=== PATIENT | male | born 1985 | race Caucasian/White ===

== ENCOUNTER 2020-08-01 14:58 | Emergency (ER) | payer SELFPAY ==
[~2020-08-01] VITALS: Ht 180.3 cm; Wt 78.0 kg
[2020-08-01] MEDS: IV NORMAL SALINE 1,000ML 1,000 ML IV ONE (15:40)
--- NOTE | 2020-08-01 16:35 | RAD ---
XR CHEST 1V Clinical Indication: hyperglycemia / Comparison: None. Findings: The cardiomediastinal silhouette is normal. Lungs are clear. There is no pneumothorax. No pleural eff usion is appreciated. No acute bone abnormality. IMPRESSION: No acute cardiopulmonary process. Electronically signed by: Jose Slater MD (08/01/2020 4:32 PM) [facility]
[2020-08-01] MEDS ORDERED: PIP/TAZO PER PHARMACY MC PRN (17:00)
[2020-08-01] MEDS: IV RINGERS SOLUTION,LACTATED 1,000 ML IV ONE (17:00)
--- NOTE | 2020-08-01 17:06 | EKG ---
[address] [address] Test Date: 2020-08-01 Test Time: 16:20:56 Pat Name: ENEDELIA FRANCISCO Department: Room: Gender: M Medical Assisting Instructor: CARMELO : 1985 Requested By: DARELL FELIX Order Number: [id number] Reading MD: Measurements Intervals [place] Rate: 102 P: 77 [place]: 136 QRS: 45 QRSD: 90 T: 59 QT: 338 QTc: 445 Interpretive Statements SINUS TACHYCARDIA NO SPECIFIC ECG ABNORMALITIES RI6.02 No previous ECG available for comparison
[2020-08-01 17:08] LABS: BARBITURATES NEG (NEG); BENZODIAZEPINES NEG (NEG); CANNABINOIDS NEG (NEG); COCAINE NEG (NEG); METHADONE NEG (NEG); OPIATES NEG (NEG); PHENCYCLIDINE NEG (NEG)
[2020-08-01 17:09] LABS: ALBUMIN 2.4 g/dL (3.4-5.0); ALBUMIN/GLOBULIN RATIO 0.3 (1.0-1.7); CALCIUM 10.4 mg/dL (8.5-10.1); CREATININE 1.5 mg/dL (0.7-1.3); POTASSIUM 5.5 mmol/L (3.5-5.1); TOTAL PROTEIN 9.4 g/dL (6.4-8.2)
[2020-08-01 17:10] LABS: AMPHETAMINE/METHAMPHETAMINE NEG (NEG)
[2020-08-01 17:13] LABS: BASO % 0 % (0-3); EOS % 0 % (0-3); HEMATOCRIT 41.2 % (39.0-53.0); HEMOGLOBIN 12.3 g/dL (13.0-17.5); LYMPH % 4 % (24-48); MEAN CORPUSCULAR HEMOGLOBIN 26 pg (25-35); MEAN CORPUSCULAR HGB CONC 30 g/dL (31-37); MEAN CORPUSCULAR VOLUME 87 fL (79-100); MONO # 1.9 x10^3/uL (0.0-1.1); MONO % 4 % (0-9); NEUT # 50.6 x10^3uL (1.8-7.7); NEUT % 93 % (31-73); PLATELET COUNT 580 x10^3/uL (140-400); RED BLOOD COUNT 4.75 x10^6/uL (4.30-5.70); RED CELL DISTRIBUTION WIDTH 16.6 % (11.5-14.5)
[2020-08-01 17:16] LABS: BACTERIA,URINE 0 /HPF (0-FEW); BILIRUBIN,URINE NEG (NEG); CLARITY,URINE CLEAR; COLOR,URINE COLORLESS; GLUCOSE,URINE 500 mg/dL (NEG); NITRITE,URINE NEG (NEG); RBC,URINE 0 /HPF (0-2); UROBILINOGEN,URINE 0.2 mg/dL (0.2 mg/dL); WBC,URINE 0 /HPF (0-4)
[2020-08-01] MEDS ORDERED: IV NORMAL SALINE 50ML 50 ML ONE (17:16)
[2020-08-01] MEDS ORDERED: VANCOMYCIN 1 GM VIAL. ONE (17:16)
[2020-08-01] MEDS ORDERED: PIPERACILLIN/TAZOBACTAM 3.375 GM VIAL IV ONE (17:16)
[2020-08-01] MEDS ORDERED: IV NORMAL SALINE 500ML 500 ML ONE (17:16)
[2020-08-01 17:27] LABS: WHITE BLOOD COUNT 54.6 x10^3/uL (4.0-11.0)
[2020-08-01] MEDS ORDERED: POTASSIUM CHLORIDE 10MEQ 100 ML IV PRN ×5 (17:30)
[2020-08-01] MEDS ORDERED: MAGNESIUM SULFATE 2GM 50 ML IV PRN (17:30)
[2020-08-01] MEDS ORDERED: IV DEXTROSE 5 %-0.45 % NACL 1,000 ML IV SCH (17:30)
[2020-08-01] MEDS: VANCOMYCIN 2 GM in IV NORMAL SALINE 500ML 500 ML IV ONE (17:44)
[2020-08-01] MEDS: DIPH,PERTUSS(ACELL),TET VAC/PF 0.5 ML SYRINGE. VAX IM ONE (17:45)
[2020-08-01] MEDS: PIPERACILLIN/TAZOBACTAM 3.375 GM in IV NORMAL SALINE 50ML 50 ML IV ONE (17:46)
--- NOTE | 2020-08-01 18:20 | RAD ---
XR ELBOW COMPLETE_LEFT 3+VIEWS, XR HAND_LEFT 3 VIEWS, XR FOREARM_LEFT 2 VIEWS History: Reason: rash, r/o fb / Spl. Instructions: / History: Pain Technique: 3 views left elbow, 2 views left forearm and 3 views left hand Comparison: None. Findings: Normal alignment of the elbow. No elbow joint effusion. No fracture. Soft tissue swelling noted. Normal alignment of the forearm. No fracture. Forearm soft tissue swelling. Degraded evaluation of the distal phalanges due to positioning. No definite fracture. Normal-appearin g alignment. No radiopaque foreign body. Impression: 1. No radiopaque foreign body. Left upper extremity soft tissue swelling. Electronically signed by: Suhail Vasquez DO (08/01/2020 6:18 PM) [facility]
[2020-08-01] MEDS ORDERED: IV NORMAL SALINE 100ML 100 ML ONE (18:21)
[2020-08-01] MEDS: INSULIN REGULAR VIAL 100 UNIT in IV NORMAL SALINE 100ML 100 ML IV PRN (18:34)
[2020-08-01 18:41] VITALS: BP 155/82
--- NOTE | 2020-08-01 19:55 | PHYS DOC ---
Past History Past Medical History: Diabetes Past Surgical History: No Surgical History Alcohol Use: None General Adult EDM: Chief Complaint: MULTIPLE COMPLAINTS HPI: HPI: 35-year-old male past medical history of insulin-dependent diabetes and IV heroin abuse, presents to the ED with left arm pain and rash, stating his glucose is in the 400s and has been out of his insulin for the past 2 days. Reports associated fever chills and malaise. Review of Systems: Review of Systems: Constitutional: Denies fever or chills Eyes: Denies change in visual acuity HENT: Denies nasal congestion or sore throat Respiratory: Denies cough or shortness of breath Cardiovascular: Denies chest pain or edema GI: Denies abdominal pain, nausea, vomiting, bloody stools or diarrhea : Denies dysuria Musculoskeletal: Denies back pain or joint pain Integument: Denies rash Neurologic: Denies headache, focal weakness or sensory changes Endocrine: Denies polyuria or polydipsia Lymphatic: Denies swollen glands Psychiatric: Denies depression or anxiety Current Medications: Current Meds: Current Medications Medications (Trade) Dose Ordered Sig/Yessy Start Time Stop Time Status Last Admin Dose Admin Dextrose/Sodium Chloride 1,000 ml @ 0 mls/hr Q0M 08/01/20 17:30 Diphtheria/ Pertussis/Tetanus Vacc (ADACEL TDap SYRINGE) 0.5 ml ONCE ONCE 08/01/20 17:00 08/01/20 17:01 DC 08/01/20 17:45 0.5 ML Insulin Human Regular 100 unit/ Sodium Chloride 101 ml @ 0 mls/hr CONT PRN PRN 08/01/20 17:30 08/01/20 18:34 8 MLS/HR Lactated Ringer's 1,000 ml @ 1,000 mls/hr 1X ONCE 08/01/20 17:00 08/01/20 17:59 DC 08/01/20 17:00 1,000 MLS/HR Magnesium Sulfate 50 ml @ 25 mls/hr PRN Q2HR PRN 08/01/20 17:30 Piperacillin Sod/ Tazobactam Sod (Zosyn Per Pharmacy) 1 each PRN DAILY PRN 08/01/20 17:00 Piperacillin Sod/ Tazobactam Sod (Zosyn) 3.375 gm STK-MED ONCE 08/01/20 17:16 08/01/20 17:17 DC Piperacillin Sod/ Tazobactam Sod 3.375 gm/Sodium Chloride 50 ml @ 100 mls/hr 1X ONCE 08/01/20 17:00 08/01/20 17:29 DC 08/01/20 17:46 100 MLS/HR Potassium Chloride 100 ml @ 100 mls/hr PRN Q1HR PRN 08/01/20 17:30 Sodium Chloride 100 ml @ As Directed STK-MED ONCE 08/01/20 18:21 08/01/20 18:22 DC Vancomycin HCl (Vancomycin) 1 gm STK-MED ONCE 08/01/20 17:16 08/01/20 17:17 DC Vancomycin HCl 2 gm/Sodium Chloride 500 ml @ 250 mls/hr 1X ONCE 08/01/20 17:00 08/01/20 18:59 DC 08/01/20 17:44 250 MLS/HR Allergies: Allergies: Allergies Coded Allergies Type Severity Reaction Last Updated Verified No Known Drug Allergies 08/01/20 No Physical Exam: PE: CONSTITUTIONAL: toxic appearing, in distress, alert and oriented, hemodynamically stable on arrival, no hypotension, unkept/disheveled appearance/dirty clothes, gf present in ed HEAD: normocephalic, atraumatic, NECK: No midline tenderness, no nuchal rigidity or meningismus, no JVD or tracheal deviation Eyes: EOMI, conjunctiva normal, no discharge. Cardiovascular: S1/2 present, tachycardia on arrival Lungs & Thorax: Speaking in full sentences, bilateral equal chest rise, hyperventilating with close pulse respirations Abdomen: soft, no tenderness, Skin: Warm, dry, Back: No midline tenderness, no CVA tenderness. [] Extremities: no cyanosis, no lower extremity edema, equal radial pulses bl, erythema over dorsum left hand - circumferential erythema over forearm, erythema over lateral arm - does not extend to axilla, entire arm swollen, no palpable crepitus, purulent drainage easily expressed from dorsum of patient's left hand around a black eschar/scab < 1cm, also with suspected superficial fungal infection over the dorsal forearm with yellow scaly plaques-no known h/o psoriasis, arm extended -minimal mvmt 2/2 pain (initially refused imaging 2/2 pain), Neurologic: Alert and oriented X 3/gcs15, normal motor function, normal sensory function, no focal deficits noted. [] Psychologic: Affect normal, judgement normal, mood normal. [] Current Patient Data: Labs: Laboratory Tests Test 08/01/20 15:13 08/01/20 15:32 08/01/20 16:16 08/01/20 16:50 Glucose (Fingerstick) 427 mg/dL (70-99) H White Blood Count 54.6 x10^3/uL (4.0-11.0) *H Red Blood Count 4.75 x10^6/uL (4.30-5.70) Hemoglobin 12.3 g/dL (13.0-17.5) L Hematocrit 41.2 % (39.0-53.0) Mean Corpuscular Volume 87 fL (79-100) Mean Corpuscular Hemoglobin 26 pg (25-35) Mean Corpuscular Hemoglobin Concent 30 g/dL (31-37) L Red Cell Distribution Width 16.6 % (11.5-14.5) H Platelet Count 580 x10^3/uL (140-400) H Neutrophils (%) (Auto) 93 % (31-73) H Lymphocytes (%) (Auto) 4 % (24-48) L Monocytes (%) (Auto) 4 % (0-9) Eosinophils (%) (Auto) 0 % (0-3) Basophils (%) (Auto) 0 % (0-3) Neutrophils # (Auto) 50.6 x10^3uL (1.8-7.7) H Lymphocytes # (Auto) 2.0 x10^3/uL (1.0-4.8) Monocytes # (Auto) 1.9 x10^3/uL (0.0-1.1) H Eosinophils # (Auto) 0.0 x10^3/uL (0.0-0.7) Basophils # (Auto) 0.0 x10^3/uL (0.0-0.2) Platelet Estimate Pending Sodium Level 129 mmol/L (136-145) L Potassium Level 5.5 mmol/L (3.5-5.1) H Chloride Level 89 mmol/L (98-107) L Carbon Dioxide Level 7 mmol/L (21-32) *L Anion Gap 33 (6-14) H Blood Urea Nitrogen 33 mg/dL (8-26) H Creatinine 1.5 mg/dL (0.7-1.3) H Estimated GFR (Cockcroft-Gault) 53.0 BUN/Creatinine Ratio 22 (6-20) H Glucose Level 506 mg/dL (70-99) *H Lactic Acid Level 3.6 mmol/L (0.4-2.0) H Calcium Level 10.4 mg/dL (8.5-10.1) H Magnesium Level 3.0 mg/dL (1.8-2.4) H Total Bilirubin 1.0 mg/dL (0.2-1.0) Aspartate Amino Transferase (AST) 23 U/L (15-37) Alanine Aminotransferase (ALT) 44 U/L (16-63) Alkaline Phosphatase 298 U/L (46-116) H Troponin I Quantitative < 0.017 ng/mL (0-0.055) Total Protein 9.4 g/dL (6.4-8.2) H Albumin 2.4 g/dL (3.4-5.0) L Albumin/Globulin Ratio 0.3 (1.0-1.7) L Acetone Level Sm pos (NEG) Urine Collection Type Unknown Urine Color Colorless Urine Clarity Clear Urine pH 5.0 Urine Specific Abercrombie >=1.030 Urine Protein 30 mg/dl (NEG-TRACE) Urine Glucose (UA) 500 mg/dL (NEG) Urine Ketones (Stick) >=160 mg/dL (NEG) Urine Blood Trace (NEG) Urine Nitrite Neg (NEG) Urine Bilirubin Neg (NEG) Urine Urobilinogen Dipstick 0.2 mg/dL (0.2 mg/dL) Urine Leukocyte Esterase Neg (NEG) Urine RBC 0 /HPF (0-2) Urine WBC 0 /HPF (0-4) Urine Squamous Epithelial Cells None /LPF Urine Bacteria 0 /HPF (0-FEW) Urine Opiates Screen Neg (NEG) Urine Methadone Screen Neg (NEG) Urine Barbiturates Neg (NEG) Urine Phencyclidine Screen Neg (NEG) Urine Amphetamine/Methamphetamine Neg (NEG) Urine Benzodiazepines Screen Neg (NEG) Urine Cocaine Screen Neg (NEG) Urine Cannabinoids Screen Neg (NEG) Urine Ethyl Alcohol Neg (NEG) SARS-CoV-2 Antigen (Rapid) Negative (NEGATIVE) Test 08/01/20 18:31 Glucose (Fingerstick) 478 mg/dL (70-99) H Vital Signs: Vital Signs Date Time Temp Pulse Resp B/P (MAP) Pulse Ox O2 Delivery O2 Flow Rate FiO2 08/01/20 15:59 105 40 145/89 (107) 99 Room Air 08/01/20 15:00 98.8 EKG: EKG: Sinus tachycardia 102 bpm, no axis deviation, QTC 445, hyperacute T waves diff usely with LVH, no dagger Q waves, questionable [place] depression for pericarditis, troponin pending for myocarditis, denies any active chest pain, no ST elevations or ST depressions Radiology/Procedures: Radiology/Procedures: IMAGING REPORT Signed PATIENT: ENEDELIA FRANCISCO A ACCOUNT: [id number] : 1985 LOCATION: ER AGE: 35 SEX: M EXAM STATUS: REG ER ORD. PHYSICIAN: JUDITH FELIX DO REASON: hyperglycemia PROCEDURE: CHEST AP ONLY XR CHEST 1V Clinical Indication: hyperglycemia / Comparison: None. Findings: The cardiomediastinal silhouette is normal. Lungs are clear. There is no pneumothorax. No pleural effusion is appreciated. No acute bone abnormality. IMPRESSION: No acute cardiopulmonary process. Electronically signed by: Jose Slater MD (08/01/2020 4:32 PM) [facility] DICTATED AND SIGNED BY: JOSE SLATER MD DATE: 08/01/20 1631 CC: PCP,NO; JUDITH FELIX DO ~MTH0 0 IMAGING REPORT Signed PATIENT: ENEDELIA FRANCISCO A ACCOUNT: [id number] : 1985 LOCATION: ER AGE: 35 SEX: M EXAM STATUS: REG ER ORD. PHYSICIAN: JUDITH FELIX DO REASON: rash, r/o fb PROCEDURE: ELBOW LEFT 3V XR ELBOW COMPLETE_LEFT 3+VIEWS, XR HAND_LEFT 3 VIEWS, XR FOREARM_LEFT 2 VIEWS History: Reason: rash, r/o fb / Spl. Instructions: / History: Pain Technique: 3 views left elbow, 2 views left forearm and 3 views left hand Comparison: None. Findings: Normal alignment of the elbow. No elbow joint effusion. No fracture. Soft tissue swelling noted. Normal alignment of the forearm. No fracture. Forearm soft tissue swelling. Degraded evaluation of the distal phalanges due to positioning. No definite fracture. Normal-appearing alignment. No radiopaque foreign body. Impression: 1. No radiopaque foreign body. Left upper extremity soft tissue swelling. Electronically signed by: Suhail Vasquez DO (08/01/2020 6:18 PM) [facility] DICTATED AND SIGNED BY: SUHAIL VASQUEZ DO DATE: 08/01/201814 CC: PCP,NO; JUDITH FELIX DO ~MTH0 0 Heart Score: Risk Factors: Risk Factors: DM, Current or recent (<one month) smoker, HTN, HLP, family history of CAD, obesity. Risk Scores: Score 0 - 3: 2.5% MACE over next 6 weeks - Discharge Home Score 4 - 6: 20.3% MACE over next 6 weeks - Admit for Clinical Observation Score 7 - 10: 72.7% MACE over next 6 weeks - Early Invasive Strategies Course & Med Decision Making: Course & Med Decision Making Pertinent Labs and Imaging studies reviewed. (See chart for details) Left upper extremity cellulitis concerning for necrotizing fasciiti/sepsis s of an IV drug user who reports IV use in E, also with DKA, started on insulin drip. [facility] transfer center called prior to labs -may need hand surgery/higher level of care vs general surgery (emr downtime of 8 hrs prior to evaluation and large delay in lab results/ed turnaround time, due to this). Immediately accepted after labs resulted, for ICU transfer and stat surgery evaluation. Started on broad-spectrum antibiotics. Patient stable at time of transfer and agreed with this plan. Critical Care: Authorized and Performed by: Judith Felix DO Total critical care time: approximately 60 minutes Due to a high probability of clinically significant, life threatening deterioration, the patient required my highest level of preparedness to intervene emergently and I personally spent this critical care time directly and personally managing the patient. This critical care time included obtaining a history; examining the patient; pulse oximetry; ventilator management if necessary; ordering and review of studies; arranging urgent treatment with development of a management plan; evaluation of patient's response to treatment; frequent reassessment; discussion with patient/family; and, discussions with other providers. This critical care time was performed to assess and manage the high probability of imminent, life-threatening deterioration that could result in multi-organ failure. It was exclusive of separately billable procedures and treating other patients and teaching time. Please see MDM section and the rest of the note for further information on patient assessment and treatment. Dragon Disclaimer: Dragon Disclaimer: This electronic medical record was generated, in whole or in part, using a voice recognition dictation system. Departure Departure: Impression: Primary Impression: Necrotizing fasciitis of upper arm Additional Impressions: Cellulitis of left upper extremity Diabetic ketoacidosis IV drug user Sepsis Renal insufficiency Disposition: 05 DC/TRF OTHER TYPE INSTITUTI (Dr. Yusef HASSAN) Condition: CRITICAL Referrals: PCP,NO (PCP) JUDITH FELIX DO Aug 01, 2020 19:55
[2020-08-02 00:06] LABS: % BANDS 7 % (0-9); % LYMPHS 6 % (24-48); % MONOS 1 % (0-10); % SEGS 86 % (35-66); PLT ESTIMATE INCREASED (ADEQUATE)
== END 2020-08-01 18:49 | disposition short-term general hospital (02) ==
LOC: ER 14:58
DX: A41.89 Other specified sepsis (principal); U07.1 COVID-19; N28.9 Disorder of kidney and ureter, unspecified; E11.10 Type 2 diabetes mellitus with ketoacidosis without coma; L03.114 Cellulitis of left upper limb; M72.6 Necrotizing fasciitis
CPT/HCPCS: 36415; 71045; 73080; 73090; 73130; 80053; 80307; 81001; 82010; 82947; 83605; 83735; 83930; 84100; 84484; 85007; 85025; 87040; 87426; 90471; 90715; 93005; 96361; 96365; 96368; 96375; 99291; C9803; J1815; J2543; J3370; J7030; J7040; J7120; U0003; 99285-25

== ENCOUNTER 2020-12-26 14:06 | Emergency (ER) | payer SELFPAY ==
[~2020-12-26] VITALS: Ht 180.3 cm; Wt 73.8 kg
[2020-12-26 14:21] VITALS: BP 140/90
--- NOTE | 2020-12-26 14:54 | PHYS DOC ---
Past History Past Medical History: Diabetes (ROMANDEEPTI Jacobo ACCOUNT RESOLUTION SPECIALIST) Past Surgical History: No Surgical History (ROMANDEEPTI Jacboo ACCOUNT RESOLUTION SPECIALIST) Alcohol Use: None (DEEPTI OWENS ACCOUNT RESOLUTION SPECIALIST) Adult General Chief Complaint Chief Complaint: DENTAL PROBLEM HPI HPI Patient is a 35-year-old male patient with history of diabetes type 2 presenting to the ED today complaining of 8/10 right lower gum dental pain and swelling, symptoms began 3 days ago. Patient denies any fever or trismus. States he has been using [id number] remedies with no relief. Patient states symptoms are worse on eating food (ROMANDEEPTI Jacobo ACCOUNT RESOLUTION SPECIALIST) Review of Systems Review of Systems Constitutional: Denies fever or chills [] HENT: Reports dental pain and swelling. Denies nasal congestion or sore throat [] Musculoskeletal: Denies back pain or joint pain [] Integument: Denies rash or skin lesions [] Neurologic: Denies headache, focal weakness or sensory changes [] All other systems were reviewed and found to be within normal limits, except as documented in this note. (DEEPTI OWENS Jacobo ACCOUNT RESOLUTION SPECIALIST) Allergies Allergies Allergies Coded Allergies Type Severity Reaction Last Updated Verified No Known Drug Allergies 08/01/20 No (DEEPTI OWENS Jacobo ACCOUNT RESOLUTION SPECIALIST) Physical Exam Physical Exam Constitutional: Well developed, well nourished, no acute distress, non-toxic appearance. [] HENT: Normocephalic, atraumatic, bilateral external ears normal, oropharynx moist, no oral exudates, nose normal. [] Right lower gum with mild swelling consistent with a dental abscess, right lower molar appears left lower gum with mild swelling as well. Left lower molar with dental decay Skin: Warm, dry, no erythema, no rash. [] Back: No tenderness, no CVA tenderness. [] Extremities: No tenderness, no cyanosis, no clubbing, ROM intact, no edema. [] Neurologic: Alert and oriented X 3, normal motor function, normal sensory function, no focal deficits noted. [] Psychologic: Affect normal, judgement normal, mood normal. [] (ROMANDEEPTI Jacobo ACCOUNT RESOLUTION SPECIALIST) Current Patient Data Vital Signs Vital Signs Date Time Temp Pulse Resp B/P (MAP) Pulse Ox O2 Delivery O2 Flow Rate FiO2 12/26/20 14:21 98.3 110 16 140/90 99 Room Air (DEEPTI OWENS APRN) EKG EKG [] (DEEPTI OWENS APRN) Radiology/Procedures Radiology/Procedures [] (DEEPTI OWENS APRN) Heart Score C/O Chest Pain: N/A Risk Factors: Risk Factors: DM, Current or recent (<one month) smoker, HTN, HLP, family history of CAD, obesity. Risk Scores: Risk Factors: DM, Current or recent (<one month) smoker, HTN, HLP, family history of CAD, obesity. (DEEPTI OWENS APRN) Course & Med Decision Making Course & Med Decision Making Pertinent Labs and Imaging studies reviewed. (See chart for details) This is a 35-year-old male patient with abscess. Discharged on amoxicillin. Follow-up with a dentist. (DEEPTI OWENS APRN) Dragon Disclaimer Dragon Disclaimer This electronic medical record was generated, in whole or in part, using a voice recognition dictation system. (DEEPTI OWENS APRN) Departure Departure: Impression: Primary Impression: Abscess, dental Disposition: HOME / SELF CARE / HOMELESS Condition: STABLE Referrals: NON,STAFF (PCP) follow up with your dentist in one week Patient Instructions: Dental Abscess Additional Instructions: You have a dental abscess. Please take the prescribed antibiotics until completed. Follow-up with your dentist as soon as possible Scripts Hydrocodone Bit/Acetaminophen (HYDROCODONE-APAP 5-325 ) 1 Each Tablet 1 TAB PO PRN Q6HRS PRN for PAIN, #10 TAB 0 Refills Prov: DEEPTI OWENS APRN 12/26/20 Naproxen (NAPROXEN) 500 Mg Tablet.dr 1 TAB PO BID, #20 TAB Prov: DEEPTI OWENS APRN 12/26/20 Amoxicillin (AMOXICILLIN) 875 Mg Tablet 1 TAB PO BID, #20 TAB Prov: DEEPTI OWENS APRN 12/26/20 Attending Signature Attending Signature I have reviewed the PA/MEDICAL SECRETARY TEACHER's note and plan of care. I was available for consultation as needed during the patient's visit in the emergency department. I agree with the clinical impression, plan, and disposition. (STEVEN GALLOWAY DO) DEEPTI OWENS APRN Dec 26, 2020 14:54 STEVEN GALLOWAY DO Dec 26, 2020 20:19
[2020-12-26] MEDS ORDERED: NAPR500T8 PO (14:59)
[2020-12-26] MEDS ORDERED: HYDR-2759 PO (14:59)
[2020-12-26] MEDS ORDERED: AMOX875T PO (14:59)
[2020-12-26] MEDS ORDERED: HYDR-2155 PO ×3 (15:08→15:23)
== END 2020-12-26 15:12 | disposition home or self-care (01) ==
LOC: ER 14:06
DX: K04.7 Periapical abscess without sinus (principal); E11.9 Type 2 diabetes mellitus without complications
CPT/HCPCS: 99283